=== PATIENT | female | born 1985 | race Caucasian/White ===

== ENCOUNTER 2016-07-30 12:41 | Emergency (ER) | payer OTHER ==
[~2016-07-30] VITALS: Ht 170.2 cm; Wt 80.7 kg
[~2016-07-30 12:41] MED LIST: IBUP-103 PO; MULT-506 PO
[2016-07-30 13:00] VITALS: TEMP 36.9; Ht 170.2 cm; Wt 80.7 kg
[2016-07-30] MEDS ORDERED: OMEG10007 PO (13:18)
[2016-07-30] MEDS ORDERED: IBUPROFEN 600 MG TAB PO STA (14:16)
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
--- NOTE | 2016-07-30 15:07 | DIAGNOSTIC IMAGING REPORT ---
LEFT SHOULDER MIN 2 VIEWS ROUTINE CLINICAL HISTORY: pain with abduction pain COMPARISON: None. DISCUSSION: The bones and joint spaces appear intact. There is no evidence of fracture, dislocation or bony disease. There is no evidence for soft tissue swelling. IMPRESSION: Negative study. Electronically signed by: Frank Lozada M.D. 07/30/2016 3:06 PM Dictated Date/Time: 07/30/2016 3:05 PM
[2016-07-30] MEDS ORDERED: CYCL5TAB PO (15:23)
[2016-07-30] MEDS ORDERED: IBUP-1427 PO (15:23)
[2016-07-30] MEDS ORDERED: CYCL10TA6 PO (15:27)
[2016-07-30 15:43] VITALS: BP 124/70; PULSE 84; O2SAT 99
== END 2016-07-30 15:44 | disposition home or self-care (01) ==
LOC: C.EDB 12:44 → C.EDC 15:44
DX: M25.512 Pain in left shoulder (principal); Z83.3 Family history of diabetes mellitus; Z82.49 Family history of ischemic heart disease and other diseases of the circulatory system

== ENCOUNTER → 2016-08-30 | Outpatient (CLI) | payer OTHER ==
[~2016-08-30] MED LIST changes: +IBUP-1427 PO; +OMEG10007 PO
--- NOTE | 2016-08-30 10:16 | DIAGNOSTIC IMAGING REPORT ---
PELVIS ONE VIEW, LEFT HIP 1 VIEW CLINICAL HISTORY: LABRAL TEAR OF LEFT HIP, DEGENERATIVE COMPARISON STUDY: Left hip MRI 07/24/2013. FINDINGS: Cartilage spaces are maintained for age within the hips. No acute fracture or dislocation within the pelvis or hips. The sacrum is intact. There is 1.8 cm lucent lesion within the proximal shaft of left femur which demonstrates a sclerotic rim. This may slightly increased in size. However, this demonstrates benign characteristics. Tiny ossific densities at the superolateral aspect of the right acetabulum is likely due to chronic change. IMPRESSION: 1. No significant degenerative changes within the bilateral hips. 2. Slight increase in size in the 1.8 cm lucent lesion within the proximal shaft of the left femur. This is nonspecific but appears to demonstrate benign characteristics. Consider MRI follow-up in 6 months to 1 year. Electronically signed by: Lincoln Parham M.D. 08/30/2016 10:14 AM Dictated Date/Time: 08/30/2016 10:10 AM
== END | disposition home or self-care (01) ==
LOC: C.RDSM 09:53
PROVIDERS: ATTEND Physician Assistant
DX: M25.859 Other specified joint disorders, unspecified hip (principal); M25.552 Pain in left hip; M16.9 Osteoarthritis of hip, unspecified; M89.9 Disorder of bone, unspecified